=== PATIENT | female | born 1965 ===

== ENCOUNTER 2017-06-09 09:20 | Day surgery (SDC) | payer OTHER ==
[2017-06-09 10:02] VITALS: BMI 22.6
[2017-06-09] MEDS ORDERED: Propofol 10 mg/ml Inj (20 ML) ONE (11:41)
[2017-06-09] MEDS ORDERED: Lidocaine Hydrochloride 5 ML INJ ONE (11:41)
[2017-06-09 14:14] VITALS: TEMP 97
[2017-06-09 14:15] VITALS: BP 118/82; PULSE 81; RESP 15; O2SAT 14
== END 2017-06-09 13:47 | disposition home or self-care (01) ==
LOC: C.ENDO 09:20
PROVIDERS: ATTEND Internal Medicine Gastroenterology
DX: Z12.11 Encounter for screening for malignant neoplasm of colon (principal); K64.8 Other hemorrhoids; K44.9 Diaphragmatic hernia without obstruction or gangrene; K29.50 Unspecified chronic gastritis without bleeding; E11.9 Type 2 diabetes mellitus without complications; I10 Essential (primary) hypertension; E78.5 Hyperlipidemia, unspecified
CPT/HCPCS: 43239; 45378; 82948; 88305; 88342; J2704